=== PATIENT | female | born 1945 | race Caucasian/White ===

== ENCOUNTER 2019-06-11 08:32 | Outpatient (CLI) | payer MEDICARE, OTHER, SELFPAY ==
--- NOTE | ~2019-06-11 | CT_ITS ---
EXAMINATION: CT abdomen wo/w con DATE: 06/11/2019 09:44 INDICATION: Renal mass follow-up TECHNIQUE: Computed tomography (CT) of the abdomen was performed without and subsequently with 100 cc Omnipaque 350 intravenous contrast. Automated exposure control and iterative reconstruction techniqu e were employed. Exam dose: 816.00 mGy-cm total exam DLP. COMPARISON: 04/25/2019 CT abdomen pelvis FINDINGS: There is discoid atelectasis and/or scarring in the lower aspect of both lower lobes. Right lower lobe calcified pulmonary granuloma. No infiltrate or consolidation at the included lung bases. Normal heart size. No pericardial effusion. Small sliding hiatal hernia There are multiple stones throughout the gallbladder lumen. No gallbladder wall thickening or pericho lecystic fluid or inflammation. Calcified hepatic and splenic granulomas consistent with old granulomatous disease. No hepatic, splen ic, pancreatic, adrenal space-occupying mass lesion. No bile duct or pancreatic duct dilatation. There are numerous cysts of the right kidney, numbering at least 11, measuring between 3 mm and 11.3 mm maximal dimension. There is an exophytic hyperdense cyst of the mid lateral right kidney, measurin g approximately 9.5 mm, with attenuation 102 Hounsfield units, compatible with hyperdense benign cyst . There is an indeterminate 1.6 cm high density mass of the anterolateral aspect of the mid to lower le ft kidney; renal cell carcinoma is not excluded. MRI renal examination is recommended. There are multiple left renal cysts, at least 9, the largest measuring up to 2.2 cm. There is atherosclerotic calcification of the abdominal aorta and at the origins of the renal arterie s as well as bilateral common iliac artery calcifications. No abdominal aortic aneurysm. No intraperitoneal or retroperitoneal mass lesion or adenopathy or ascites. No bowel obstruction or intraperitoneal free air. Diverticulosis of the left and right colon; no CT evidence of diverticulitis. Small fat-containing umbilical hernia. Diffuse idiopathic skeletal hyperostosis of the thoracic spine. There is multilevel degenerative dis c disease of the lumbar spine, most pronounced at L5-S1. There is prominent degenerative change of th e apophyseal joints, with associated grade 1 anterolisthesis at L4-5. IMPRESSION: Numerous bilateral renal lesions, most of which are cysts. However, at least one suspicious mass on the left measures 102 Hounsfield units and 1.6 cm dimension; renal cell carcinoma is not excluded. Renal MRI examination is recommended. Small sliding hiatal hernia Cholelithiasis Diverticulosis of left and right colon Reviewed, dictated and finalized at [facility]. Reviewed, dictated and finalized at [facility]. ARCH AND DEVELOPMENT SCIENTIST
[2019-06-11 09:35] LABS: Blood Urea Nitrogen 17 mg/dL (8-26); Estimated Glomerular Filt Rate > 60
== END 2019-06-11 08:33 | disposition home or self-care (01) ==
PROVIDERS: PCP Family Medicine Adolescent Medicine; Visit Provider Urology
DX: N28.89 Other specified disorders of kidney and ureter (principal); K44.9 Diaphragmatic hernia without obstruction or gangrene; K80.20 Calculus of gallbladder without cholecystitis without obstruction; K57.30 Diverticulosis of large intestine without perforation or abscess without bleeding
CPT/HCPCS: 74170; Q9967

== ENCOUNTER → 2019-07-16 13:48 | Outpatient (CLI) | payer MEDICARE, OTHER, SELFPAY ==
--- NOTE | ~2019-07-16 | XR_ITS ---
EXAMINATION: XR hip LT min 2V DATE: 07/16/2019 14:18 INDICATION: Left hip pain. TECHNIQUE: 2 views of left hip were obtained. COMPARISON: None. FINDINGS: Bone alignment is normal. No fracture. There is moderate left hip osteoarthritis. IMPRESSION: 1. Moderate left hip osteoarthritis. Reviewed, dictated and finalized at [facility].
--- NOTE | ~2019-07-16 | XR_ITS ---
XR lumbar spine min 4V 07/16/2019 14:18 Indication: Low back pain Procedure: 5 views lumbar spine Comparison: No prior studies for comparison. Findings: There is disc narrowing at all lumbar levels. There is grade 1 degenerative spondylolisthes is at L4-5. There are facet hypertrophic changes at L3-4, L4-5 and L5-S1. No acute fracture or trauma tic malalignment. There is atherosclerosis. Impression: 1: Moderate lumbar spondylosis with grade 1 degenerative spondylolisthesis at L4-5. Reviewed, dictated and finalized at [facility]. Impression: 1: Moderate lumbar spondylosis with grade 1 degenerative spondylolisthesis at L 4-5.
== END ==
DX: M47.816 Spondylosis without myelopathy or radiculopathy, lumbar region (principal); M16.12 Unilateral primary osteoarthritis, left hip
CPT/HCPCS: 72110; 73502

== ENCOUNTER 2020-08-02 07:04 | Outpatient (CLI) | payer MEDICARE, OTHER, SELFPAY ==
--- NOTE | ~2020-08-02 | MR_ITS ---
EXAMINATION: MR abdomen wo/w con DATE: 08/02/2020 08:22 INDICATION: Renal mass TECHNIQUE: Magnetic resonance imaging (MRI) of the abdomen was performed without and with 17 mL Multi radha intravenous contrast. Sequences included coronal T2-weighted SS-FSE, coronal and axial FS 2D-F IESTA, axial STIR FSE, axial T2-weighted SS-FSE, axial T2-weighted FS SS-FSE, axial diffusion-weighte d SE, axial dual-echo T1-weighted FSPGR, and axial and coronal T1-weighted LAVA. Postcontrast axial T 1-weighted LAVA images were obtained in a time course. Postcontrast coronal T1-weighted LAVA images w ere obtained. COMPARISON: None. FINDINGS: Heart size is normal. No pericardial or pleural effusion. 1.6 cm avidly enhancing lesion at the cauda l tip of the right hepatic lobe which appears to begin with peripheral puddling of contrast on the ea rliest postcontrast image which remains isointense to the aorta on the final post contrast coronal im ages with no washout images most consistent with a hemangioma. No other hepatic lesions identified. N umerous gallstones within the otherwise normal gallbladder. No intra or extrahepatic biliary ductal d ilation. Pancreas, spleen, pancreas and bilateral adrenal glands are normal. Multiple bilateral nonenhancing renal cysts including a complex proteinaceous/hemorrhagic exophytic m illimeters cyst at the lateral lower pole of the right kidney which demonstrates decreased T2 and inc reased T1 signal. There is a 1.9 cm heterogeneously enhancing mass arising from the anterior lower po le of the left kidney consistent with renal cell carcinoma. Visualized portion of the bowels are unremarkable. No pathologically enlarged abdominal lymphadenopat hy. Severe lumbar spondylosis. IMPRESSION: 1. 1.9 cm enhancing mass at the lower pole of the left kidney consistent with renal cell carcinoma. 2. Cholelithiasis. Reviewed, dictated and finalized at location [facility]. IMPRESSION: 1. 1.9 cm enhancing mass at the lower pole of the left kidney consistent with r enal cell carcinoma. 2. Cholelithiasis.
[2020-08-02 07:51] LABS: Estimated Glomerular Filt Rate > 60
== END 2020-08-02 07:05 | disposition home or self-care (01) ==
PROVIDERS: PCP Family Medicine Adolescent Medicine; Visit Provider Urology
DX: N28.89 Other specified disorders of kidney and ureter (principal); K80.20 Calculus of gallbladder without cholecystitis without obstruction; K76.89 Other specified diseases of liver
CPT/HCPCS: 74183; A9577

== ENCOUNTER 2020-08-30 12:18 | Emergency (ER) | payer MEDICARE, OTHER, SELFPAY ==
--- NOTE | ~2020-08-30 | XR_ITS ---
EXAMINATION: XR foot LT min 3V EXAM DATE: 08/30/2020 12:47 INDICATION: Initial encounter following injury, with pain of the left foot. TECHNIQUE: Left foot dorsoplantar, lateral and oblique projections obtained and reviewed. There is n o prior study for comparison. FINDINGS: Left metatarsal bones unremarkable. There are no acute fractures or dislocations identifi ed. There is no subcutaneous gas. Some faint vascular calcifications. Tiny inferior calcaneal spur. There are no radiopaque foreign bodies. There is advanced 1st tarsometatarsal primary osteoarthrit is. IMPRESSION: Chronic left foot findings as above. Reviewed, dictated and finalized at location [facility].
[2020-08-30 12:31] VITALS: BP 146/79; PULSE 72; RESP 18; TEMP 36.6; O2SAT 100
--- NOTE | 2020-08-30 12:49 | ED.LOWEXIN ---
HPI - Extremity Injury (Lower) General Chief Complaint: Extremity Injury, Lower Stated Complaint: LEFT FOOT PAIN Source: patient Mode of arrival: ambulatory Limitations: no limitations History of Present Illness HPI Narrative: Patient is a 75-year-old female who presents complaining of left foot pain. Patient reports she was walking and twisted ankle/foot yesterday. Reports tenderness with palpation and small amount of bruising. She denies taking any qthu-hyk-yzbqwlv medications. She denies any other complaints at this time. MD complaint: ankle injury and foot injury Related Data Home Medications Medication Instructions Recorded Confirmed escitalopram oxalate [Lexapro] 20 mg PO DAILY 08/30/20 08/30/20 irbesartan-hydrochlorothiazide 1 tablet PO DAILY 08/30/20 08/30/20 omeprazole [Prilosec] 20 mg PO DAILY 08/30/20 08/30/20 Allergies Allergy/AdvReac Type Severity Reaction Status Date / Time Penicillins Allergy Unknown Unknown Verified 08/30/20 12:37 Review of Systems Review of Systems: Narrative: CONSTITUTIONAL: Denies fever, chills, or sweats. EYES: Denies visual changes, redness, or discharge. ENT: Denies rhinorrhea, congestion, sore throat, or otalgia. CARDIOVASCULAR: Denies chest pain, palpitations, or edema. RESPIRATORY: Denies cough or dyspnea. GASTROINTESTINAL: Denies abdominal pain, nausea, vomiting, or diarrhea. GENITOURINARY: Denies dysuria or hematuria. SKIN: Denies rash or itching. MUSCULOSKELETAL: Reports left foot/ankle pain NEUROLOGIC: Denies headache, numbness, dizziness, or weakness. PSYCHIATRIC: Denies anxiety or depression. [facility] Past Medical History Medical History Anxiety Asthma Depression History of depression History of gastroesophageal reflux (GERD) History of hypertension Surgical History Surgical History History of hysterectomy Social History Social History Smoking status: Never smoker Gender identity (if verbalized by the patient): Female Comments At the time of signature, I have reviewed and agree with nursing past medical, surgical, social, and family history unless otherwise noted. Please see nursing chart for further information. There is no relevant family history pertinent to the presenting complaint. Exam Narrative: Exam Narrative: GENERAL: Well-appearing, well-nourished, and in no acute distress. HEAD: Normocephalic, atraumatic. EYES: EOMI. No redness or drainage. Conjunctiva are normal. ENT: Mucous membranes pink and moist. CHEST: No respiratory distress. HEART: Regular rate and rhythm. No murmur appreciated. Normal peripheral pulses. EXTREMITIES: Tenderness with palpation to fourth/fifth metatarsal. Ecchymosis noted, mild edema. SKIN: Warm, dry, no rash. NEURO: No focal deficits. Alert and oriented x3. Gait steady. PSYCH: Normal affect. No signs of depression or anxiety. Course Vital Signs Vital signs: Vital Signs Temperature 36.6 C 08/30/20 12:31 Pulse Rate 72 08/30/20 12:31 Respiratory Rate 18 08/30/20 12:31 Blood Pressure 146/79 H 08/30/20 12:31 Pulse Oximetry 100 08/30/20 12:31 Temperature 36.6 C 08/30/20 12:31 Pulse Rate 72 08/30/20 12:31 Respiratory Rate 18 08/30/20 12:31 Blood Pressure 146/79 H 08/30/20 12:31 Pulse Oximetry 100 08/30/20 12:31 Reviewed-patient is informed that they may have pre-hypertension or hypertension based on a blood pressure reading. I recommend the patient call the primary care provider listed on their discharge instructions or a physician of their choice this week to arrange follow-up for further evaluation of possible pre-hypertension or hypertension. MDM - Extremity Injury (Lower) MDM Narrative Medical decision making narrative: Patient's x-ray shows no fracture or acute injury. Patient placed in Salo wrap and postop
== END 2020-08-30 13:12 | disposition home or self-care (01) ==
PROVIDERS: Emergency Provider Nurse Practitioner; PCP Family Medicine Adolescent Medicine
DX: S93.602A Unspecified sprain of left foot, initial encounter (principal); X50.9XXA Other and unspecified overexertion or strenuous movements or postures, initial encounter; X50.0XXA Overexertion from strenuous movement or load, initial encounter; J45.909 Unspecified asthma, uncomplicated; F32.9 Major depressive disorder, single episode, unspecified; F41.9 Anxiety disorder, unspecified; K21.9 Gastro-esophageal reflux disease without esophagitis; I10 Essential (primary) hypertension
CPT/HCPCS: 73630; 99213; G0463

== ENCOUNTER 2020-09-09 10:12 | Outpatient (CLI) | payer MEDICARE, OTHER, SELFPAY ==
--- NOTE | ~2020-09-09 | MR_ITS ---
EXAMINATION: MR brain/brain stem wo con DATE: 09/09/2020 11:15 INDICATION: Encephalomalacia. TECHNIQUE: Magnetic resonance imaging (MRI) of the brain and brainstem was performed without intraven ous contrast. Sequences included sagittal and axial T1-weighted FSE, axial diffusion-weighted FS EPI, axial T2*-weighted GRE, axial T2-weighted FLAIR Propeller, and axial T2-weighted Propeller. Apparent diffusion coefficient (ADC) maps were created. COMPARISON: None. FINDINGS: There are scattered areas of nonspecific increased T2-weighted signal intensity in the cere bral white matter, which is within normal limits for the patient's age. There is no intracranial hemo rrhage, acute infarction, or abnormal intracranial mass lesion. The ventricles are normal in size. Th e orbits are normal. The paranasal sinuses are clear. The mastoid air cells are normal. IMPRESSION: 1. Normal aging brain. Reviewed, dictated and finalized at location [facility]. IMPRESSION: 1. Normal aging brain.
== END 2020-09-09 10:13 | disposition home or self-care (01) ==
LOC: ANHIMG 10:15
PROVIDERS: PCP Family Medicine Adolescent Medicine; Visit Provider Family Medicine Adolescent Medicine
DX: G93.89 Other specified disorders of brain (principal)
CPT/HCPCS: 70551

== ENCOUNTER 2022-07-12 14:23 | Outpatient (CLI) | payer MEDICARE, SELFPAY ==
--- NOTE | ~2022-07-12 | CT_ITS ---
EXAMINATION: CT brain wo con DATE: 07/12/2022 14:59 INDICATION: Loss of balance, leg paresis. TECHNIQUE: Computed tomography (CT) of the head was performed without intravenous contrast. The mA wa s adjusted according to patient size. Iterative reconstruction technique was employed. Exam dose: 68 1.00 mGy-cm total exam DLP. COMPARISON: 09/09/2020 MRI brain examination FINDINGS: Small chronic lacunar infarct is noted in the region of the anterior limb of the left inter nal capsule. Bilateral carotid siphon internal carotid artery calcifications. There is nonspecific diminished atte nuation of the cerebral white matter, likely due to chronic small vessel ischemic changes. No intracranial mass lesion or hemorrhage or cerebrovascular accident is noted otherwise. No midline shift or mass effect. No subdural or epidural hematoma. No fracture or bone destruction of the cranial vault. The paranasal sinuses and mastoid air cells are normally developed and aerated. 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 Reviewed, dictated and finalized at location B. T SORTER IMPRESSION: Small chronic lacunar infarct of anterior limb of left internal ca psule Cerebral atherosclerosis and chronic small vessel ischemic changes of the cereb ral white matter
== END 2022-07-12 14:24 | disposition home or self-care (01) ==
PROVIDERS: PCP Family Medicine Adolescent Medicine; Visit Provider Family Medicine Adolescent Medicine
DX: R29.898 Other symptoms and signs involving the musculoskeletal system (principal); R26.0 Ataxic gait; I67.2 Cerebral atherosclerosis
CPT/HCPCS: 70450

== ENCOUNTER → 2023-04-02 07:03 | Outpatient (CLI) | payer MEDICARE, SELFPAY ==
--- NOTE | ~2023-04-02 | MR_ITS ---
MRI of the thoracic spine Clinical History: Ataxia, lower extremity weakness Technique: Axial T2-weighted and gradient images, and sagittal T1-weighted, T2-weighted, and STIR alireza ges were acquired. Findings: There is relative kyphosis of the thoracic spine, but no fracture or subluxation evident. N o suspicious bone marrow signal abnormality seen. There is fusion across the T3-T4 disc space. There is advanced degenerative disc narrowing at T4-T5, T5-T6, T6-T7, and T7-T8. There is probable mild canal stenosis at the T1 and T2 levels, with facet arthropathy and mild disc b ulge is present. No cord compression identified in the thoracic spine. There is minimal prominence of the central canal the spinal cord at the C7 level. There is scattered facet joint degenerative davies es. No epidural mass or collection seen. Paravertebral soft tissues are unremarkable. Impression: Kyphosis with diffuse degenerative disc disease and moderate degenerative spondylosis at the upper th oracic spine, as detailed above. Minimal prominence of the central canal the spinal cord the C7 level. This could reflect a focal mini mal syrinx. Consider follow-up exam and/or postcontrast exam. Reviewed, dictated and finalized at [facility]. ANCE DIRECTOR Impression: Kyphosis with diffuse degenerative disc disease and moderate degenerative spond ylosis at the upper thoracic spine, as detailed above. Minimal prominence of the central canal the spinal cord the C7 level. This coul d reflect a focal minimal syrinx. Consider follow-up exam and/or postcontrast e xam.
--- NOTE | ~2023-04-02 | MR_ITS ---
MRI of the lumbar spine Clinical History: Ataxia, lower extremity weakness Technique: Axial T2-weighted images, and sagittal T1-weighted, T2-weighted, and T2 fat-sat images wer e acquired. Findings: There is no fracture of the lumbar spine. There is 4 mm anterolisthesis of L4 over L5. No s uspicious bone marrow signal abnormality seen. At L1-L2, there is no disc bulge or herniation. There is moderate facet arthropathy. No spinal canal stenosis or neural foraminal narrowing. At L2-L3, there is minimal disc bulge with advanced facet arthropathy. No central canal stenosis or n eural foraminal narrowing. At L3-L4, there is mild disc bulge with moderate to advanced facet arthropathy. No central canal sten osis. There is mild right neural foraminal narrowing. At L4-L5, there is disc bulge and severe facet arthropathy, with severe central canal stenosis/thecal sac compression. There is moderate to advanced right neural foraminal narrowing, and moderate left n eural foraminal narrowing. At L5-S1, there is disc bulge and advanced facet arthropathy. No central canal stenosis. There is sev ere bilateral neural foraminal narrowing. Paravertebral soft tissues are unremarkable. Impression: Advanced degenerative spondylosis at L4-L5 and L5-S1, as detailed above. Mild degenerative change in the remainder of the lumbar spine. 4 mm anterolisthesis of L4 over L5. Reviewed, dictated and finalized at [facility]. O RN Impression: Advanced degenerative spondylosis at L4-L5 and L5-S1, as detailed above. Mild degenerative change in the remainder of the lumbar spine. 4 mm anterolisthesis of L4 over L5.
--- NOTE | ~2023-04-02 | MR_ITS ---
MRI of the cervical spine Clinical History: Ataxia, lower extremity weakness Technique: Axial T2-weighted and gradient images, and sagittal T1-weighted, T2-weighted, and STIR alireza ges were acquired. Findings: There is no fracture of the cervical spine. There is minimal grade 1 anterolisthesis of C5 over C6. No suspicious bone marrow signal abnormality seen. C2-C3, there is no disc bulge or herniation. There is bilateral facet arthropathy, right worse than l eft. There is probable mild right neural foraminal narrowing. Left neural foramen preserved. No centr al canal stenosis or cord compression. At C3-C4, there is mild disc osteophyte complex. No spinal canal stenosis or cord compression. There is bilateral neural foraminal narrowing with bilateral facet arthropathy. At C4-C5, there is mild disc osteophyte complex, without central canal stenosis or cord compression. There is bilateral facet arthropathy. There is right neural foraminal narrowing. Left neural foramen preserved. At C5-C6, there is severe degenerative disc narrowing with mild disc osteophyte complex. No central c anal stenosis or cord compression. There is bilateral facet arthropathy with mild bilateral neural fo raminal narrowing. At C6-C7, there is severe degenerative disc narrowing. There is disc osteophyte convex with mild enrike l stenosis and probable mild cord compression ventrally. There is bilateral neural foraminal narrowin g, with mild facet arthropathy. No abnormal signal seen in the spinal cord. Paravertebral soft tissues are unremarkable. Impression: Minimal grade 1 anterolisthesis of C5 over C6. Moderate to advanced degenerative spondylosis, as detailed above. Findings are probably worst at C6-C 7. Reviewed, dictated and finalized at [facility]. ASE SPECIALIST Impression: Minimal grade 1 anterolisthesis of C5 over C6. Moderate to advanced degenerative spondylosis, as detailed above. Findings are probably worst at C6-C7.
== END ==
PROVIDERS: PCP Family Medicine Adolescent Medicine; Visit Provider Family Medicine Adolescent Medicine
DX: R26.0 Ataxic gait (principal); R29.898 Other symptoms and signs involving the musculoskeletal system; M47.896 Other spondylosis, lumbar region; M51.36 Other intervertebral disc degeneration, lumbar region; M47.892 Other spondylosis, cervical region
CPT/HCPCS: 72141; 72146; 72148

== ENCOUNTER 2023-11-18 12:48 | Outpatient (CLI) | payer MEDICARE, SELFPAY ==
--- NOTE | ~2023-11-18 | MR_ITS ---
MRI of the brain Clinical History: Ataxia, gait dysfunction Technique: Axial and sagittal T1-weighted images were acquired. These were followed by axial T2-weigh irais, diffusion weighted, gradient, and FLAIR images. Following intravenous administration of 17 cc Mu ltiHance gadolinium, T1-weighted fat-sat imaging was performed in the axial and coronal planes. COMPARISON: 09/09/2020 Findings: No acute infarct, intracranial hemorrhage, or mass lesion seen. There is focal chronic ence phalomalacia in the inferior bifrontal lobes, suggestive of prior contusions. There is minimal chroni c progressive ischemic change otherwise in the periventricular white matter. Ventricles and subarachnoid spaces are minimally dilated. Orbits are unremarkable. Paranasal sinuses and mastoid air cells are clear. Major intracranial flow voids are intact. Sagittal midline structures are intact. No abnormal postcontrast enhancement identified. IMPRESSION: No acute infarct, intracranial hemorrhage, or mass lesion. Focal chronic encephalomalacia in the bifrontal lobes inferiorly, suggestive of sequela of prior cont usions. Minimal chronic microvascular ischemic changes otherwise. Reviewed, dictated and finalized at [facility]. IMPRESSION: No acute infarct, intracranial hemorrhage, or mass lesion. Focal chronic encephalomalacia in the bifrontal lobes inferiorly, suggestive of sequela of prior contusions. Minimal chronic microvascular ischemic changes otherwise.
--- NOTE | ~2023-11-18 | MR_ITS ---
MRI of the thoracic spine Clinical History: Ataxia, syrinx Technique: Axial T2-weighted and gradient images, and sagittal T1-weighted, T2-weighted, and STIR alireza ges were acquired. Following intravenous administration of 17 cc MultiHance gadolinium, T1-weighted f at-sat imaging was performed in the axial and sagittal planes. COMPARISON: 04/02/2023 Findings: There is no fracture or subluxation of the thoracic spine. Osseous alignment is stable from prior exam, with focal kyphosis. No suspicious bone marrow signal abnormality seen. Number there is fusion across the T3-T4 disc space. There is advanced degenerative disc 9 throughout the remainder of the thoracic spine. There are multilevel mild disc bulges. There is facet arthropathy and canal sten osis at T1-T2 and T2-T3. No other canal stenosis evident. There is probable advanced bilateral neural foraminal narrowing at T4-T5. Probable right neural foraminal narrowing at T1-T2 and T2-T3. No abnormal signal seen in the spinal cord. Stable focal minimal prominence of the central canal spin al cord at the C7 region.. No abnormal postcontrast enhancement identified. Paravertebral soft tissue s are unremarkable. Impression: Stable minimal prominence of the central canal of the spinal cord at the C7 region. Stable degenerative spondylosis, as above. Reviewed, dictated and finalized at location . Impression: Stable minimal prominence of the central canal of the spinal cord at the C7 reg ion. Stable degenerative spondylosis, as above.
== END 2023-11-18 12:49 ==
PROVIDERS: PCP Family Medicine Adolescent Medicine; Visit Provider Student in an Organized Health Care Education/Training Program
DX: R26.0 Ataxic gait (principal); R53.1 Weakness; R29.898 Other symptoms and signs involving the musculoskeletal system; M47.894 Other spondylosis, thoracic region
CPT/HCPCS: 70553; 72157; A9577

== ENCOUNTER 2024-01-07 09:29 | Outpatient (CLI) | payer MEDICARE, SELFPAY ==
--- NOTE | 2024-01-07 11:30 | NEURO_ITS ---
Impression: # Complains of gait dysfunction and numbness of all extremities. # Normal Nerve Conduction Study in lower extremities. # Left severe Carpal Tunnel Syndrome. # Needle/EMG exam with decreased motor unit potentials but no neurogenic changes. # Clinical correlation recommended. Nerve Conduction Studies Anti Sensory Summary Table Stim Site NR Peak (ms) P-T Amp (?V) Site1 Site2 Delta-P (ms) Dist (cm) Karri (m/s) Left Median Anti Sensory (2-3nd Digit) NO RESPONSE Wrist NR Wrist 2-3nd Digit 14.0 Wrist 6.3 17.0 Wrist 2-3nd Digit 14.0 Right Median Anti Sensory (2-3nd Digit) Wrist 3.3 47.7 Wrist 2-3nd Digit 3.3 14.0 42 Wrist 3.3 48.6 Wrist 2-3nd Digit 3.3 14.0 42 Left Radial Anti Sensory (Base 1st Digit) Wrist 2.9 3.7 Wrist Base 1st Digit 2.9 0.0 Right Radial Anti Sensory (Base 1st Digit) Wrist 2.3 11.2 Wrist Base 1st Digit 2.3 0.0 Left Sup Fibular Anti Sensory (Ant Lat Mall) 14 cm 2.6 24.3 14 cm Ant Lat Mall 2.6 14.0 54 Right Sup Fibular Anti Sensory (Ant Lat Mall) 14 cm 3.0 16.5 14 cm Ant Lat Mall 3.0 16.0 53 Left Sural Anti Sensory (Lat Mall) Calf 3.5 15.2 Calf Lat Mall 3.5 16.0 46 Right Sural Anti Sensory (Lat Mall) Calf 3.1 11.0 Calf Lat Mall 3.1 16.0 52 Left Ulnar Anti Sensory (5th Digit) Wrist 2.4 43.5 Wrist 5th Digit 2.4 14.0 58 Right Ulnar Anti Sensory (5th Digit) Wrist 2.6 49.5 Wrist 5th Digit 2.6 14.0 54 Motor Summary Table Stim Site NR Onset (ms) O-P Amp (mV) Site1 Site2 Delta-0 (ms) Dist (cm) Karri (m/s) Left Median Motor (Abd Poll Brev) Wrist 6.2 0.6 Elbow Wrist 5.0 28.0 56 Elbow 11.2 1.5 Right Median Motor (Abd Poll Brev) Wrist 3.5 2.6 Elbow Wrist 4.5 26.0 58 Elbow 8.0 1.8 Left Peroneal Motor (Vastus Med) Ankle 3.2 1.8 Popit Ankle 7.7 37.0 48 Popit 10.9 1.4 Right Peroneal Motor (Vastus Med) Ankle 3.4 3.1 Popit Ankle 8.3 37.0 45 Popit 11.7 2.6 Left Tibial Motor (Abd Sanchez Brev) Ankle 4.0 2.3 Knee Ankle 8.0 38.0 48 Knee 12.0 1.4 Right Tibial Motor (Abd Sanchez Brev) Ankle 4.1 2.0 Knee Ankle 7.7 37.0 48 Knee 11.8 1.2 Left Ulnar Motor (Abd Dig Minimi) Wrist 2.6 7.1 A Elbow Wrist 4.8 28.0 58 A Elbow 7.4 3.2 Right Ulnar Motor (Abd Dig Minimi) Wrist 2.3 6.0 A Elbow Wrist 5.0 28.0 56 A Elbow 7.3 4.7 F Wave Studies NR F-Lat (ms) L-R F-Lat (ms) Left Median (Mrkrs) (Abd Poll Brev) 29.54 0.99 Right Median (Mrkrs) (Abd Poll Brev) 30.53 0.99 Left Peroneal (Mrkrs) (EDB) 49.30 2.27 Right Peroneal (Mrkrs) (EDB) 47.03 2.27 Left Tibial (Mrkrs) (Abd Hallucis) 48.35 0.52 Right Tibial (Mrkrs) (Abd Hallucis) 47.82 0.52 Left Ulnar (Mrkrs) (Abd Dig Min) 28.73 0.04 Right Ulnar (Mrkrs) (Abd Dig Min) 28.77 0.04 EMG Side Muscle Nerve Root Ins Act Fibs Amp Dur Recrt Comment Right 1stDorInt Ulnar C8-T1 Nml Nml Nml Nml Nml Right Ext Indicis Radial (Post Int) C7-8 Nml Nml Nml Nml Nml Right Ext Digitorum Radial (Post Int) C7-8 Nml Nml Nml Nml Nml Right BrachioRad Radial C5-6 Nml Nml Nml Nml Nml Right PronatorTeres Median C6-7 Nml Nml Nml Nml Nml Right Abd Poll Brev Median C8-T1 Nml Nml Decr >12ms +1 Rig
== END 2024-01-07 09:30 | disposition home or self-care (01) ==
LOC: ANHNEURO 09:37
PROVIDERS: PCP Family Medicine Adolescent Medicine; Visit Provider Psychiatry & Neurology Neurology
DX: R26.0 Ataxic gait (principal); R53.1 Weakness; G56.02 Carpal tunnel syndrome, left upper limb
CPT/HCPCS: 95886; 95913

== ENCOUNTER 2024-07-05 13:54 | Emergency (ER) | payer MEDICARE, SELFPAY ==
[2024-07-05 14:00] VITALS: BP 174/82; PULSE 68; RESP 17; TEMP 36.6; O2SAT 100
--- NOTE | 2024-07-05 14:55 | PC.NURSE ---
Pt to intake desk and states that she is going to leave at this time
== END 2024-07-05 16:34 | disposition left against medical advice (07) ==
LOC: ANHED 14:58
PROVIDERS: PCP Family Medicine Adolescent Medicine
DX: M54.9 Dorsalgia, unspecified (principal)
CPT/HCPCS: 99199